=== PATIENT | male | born 1965 | race African-American/Black ===

== ENCOUNTER 2018-03-28 08:14 | Day surgery (SDC) | payer OTHER ==
[~2018-03-28] VITALS: Ht 175.3 cm; Wt 70.3 kg
[2018-03-28] MEDS ORDERED: LIDOCAINE 2% 100 MG/5 ML UJET TP ONE (10:37)
== END 2018-03-28 11:29 | disposition home or self-care (01) ==
LOC: MDS 08:14 → MMU 08:16 → MDS 11:29
PROVIDERS: ATTEND Internal Medicine Gastroenterology
DX: Z12.11 Encounter for screening for malignant neoplasm of colon (principal); K57.30 Diverticulosis of large intestine without perforation or abscess without bleeding; Z72.89 Other problems related to lifestyle; F17.210 Nicotine dependence, cigarettes, uncomplicated; Z68.23 Body mass index [BMI] 23.0-23.9, adult